=== PATIENT | male | born 1960 | race Caucasian/White ===

== ENCOUNTER 2025-02-14 09:06 | Emergency (ER) | payer OTHER ==
[2025-02-14] MEDS ORDERED: Ibuprofen 200 MG TAB ONE (10:57)
== END 2025-02-14 11:03 ==
LOC: ERS 09:06
DX: S80.01XA Contusion of right knee, initial encounter (principal); I10 Essential (primary) hypertension; W01.0XXA Fall on same level from slipping, tripping and stumbling without subsequent striking against object, initial encounter; Y92.149 Unspecified place in prison as the place of occurrence of the external cause
CPT/HCPCS: 99283